=== PATIENT | male | born 1975 | race African-American/Black ===

== ENCOUNTER 2017-08-26 15:52 | Emergency (ER) | payer BC ==
[~2017-08-26] VITALS: Ht 175.3 cm; Wt 175.0 kg
[~2017-08-26 15:52] MED LIST: ALEVE220 M2 OR; ALLOPURINOL300 MG OR; AUGMENTIN875TAB PO; BOOSTRIX IM; CHOLESTEROL MED; CLINDAMYCIN150 MG PO; FLEXERIL OR; FLORASTOR250 M1 PO; FLUARIX QUADRIV1 IN1 IM; HYDROCHLOROT12.5 MG OR; HYDROCHLOROT12.5 MG PO; HYDROCHLOROT25 MG PO; LASIX 40 MG TAB40 MG OR; LISINOPRIL10 MG OR; LISINOPRIL20 MG PO; LOVASTATIN10 M1 PO; MELOXICAM15 MG PO; MICRO-K10 MEQ PO; NAPROSYN500 MG PO; PERCOCET 5/325M1 TAB PO; TET/DIP TOX1 ML IM; ULTRAM50 M1 OR
[2017-08-26 16:35] VITALS: BP 132/76
== END 2017-08-26 16:35 | disposition home or self-care (01) | DRG 301 ==
LOC: ED 15:52
DX: I83.028 Varicose veins of left lower extremity with ulcer other part of lower leg (principal); W22.09XA Striking against other stationary object, initial encounter; Y93.89 Activity, other specified; Y92.513 Shop (commercial) as the place of occurrence of the external cause

== ENCOUNTER 2020-07-04 15:00 | Emergency (ER) | payer OTHER, BC ==
[~2020-07-04] VITALS: Ht 175.3 cm; Wt 165.9 kg
[2020-07-04] MEDS ORDERED: MOBIC7.5 M1 PO (16:33)
[2020-07-04 17:35] VITALS: BP 168/74
== END 2020-07-04 18:03 | disposition home or self-care (01) | DRG 552 ==
LOC: ED 15:00
DX: M54.2 Cervicalgia (principal); M54.6 Pain in thoracic spine; V59.40XA Driver of pick-up truck or van injured in collision with unspecified motor vehicles in traffic accident, initial encounter

== ENCOUNTER 2021-05-29 09:54 | Observation (INO) | payer BC ==
[~2021-05-29] VITALS: Ht 175.3 cm; Wt 168.0 kg
[~2021-05-29 09:54] MED LIST changes: +MOBIC7.5 M1 PO
--- NOTE | 2021-05-29 10:40 | NUR ---
PT AMBULATED TO ROOM, WHEELCHAIR OFFERED AND DECLINED.
--- NOTE | 2021-05-29 11:25 | NUR ---
PT SITTING IN AWAITING US AT THIS TIME. CALL LIGHT WITHIN REACH.
--- NOTE | 2021-05-29 11:40 | NUR ---
PT SITTING IN AWAITING US AT THIS TIME. CALL LIGHT WITHIN REACH.
--- NOTE | 2021-05-29 12:25 | NUR ---
PT SITTING IN AWAITING RESULTS AT THIS TIME. CALL LIGHT WITHIN REACH.
--- NOTE | 2021-05-29 13:25 | NUR ---
PT SITTING IN RM AWAITING RESULTS. CALL LIGHT WITHIN REACH.
[2021-05-29 13:53] LABS: HEMATOCRIT 35.4 % (39.0-50.0); IMMATURE GRANULOCYTES 0.7 % (0.0-5.0); MEAN CELL VOLUME 83.3 fL CALC (80.0-100.0); MEAN CORPUSCULAR HGB 25.9 pG CALC (26.0-32.0); MEAN CORPUSCULAR HGB CONC 31.1 g/dL CAL (32.0-36.0); NEUT# 5.67 thou/uL (1.82-7.42); RED BLOOD COUNT 4.25 mill/uL (4.70-6.10); RED CELL DISTRI WIDTH 14.2 % (11.5-15.5)
[2021-05-29 14:13] LABS: ALBUMIN 4.2 g/dL (3.2-5.0); ALKALINE PHOSPHATASE 92 u/l (38-126); BILIRUBIN, TOTAL 0.3 mg/dL (0.0-1.4); BUN 22 mg/dL (9-20); BUN/CREATININE RATIO 15 (12-20 (CALC)); CREATININE 1.4 mg/dL (0.7-1.3); GFR 55 ML/MIN (>=60 (CALC)); GFR FOR AFR.AMER. > 60 ML/MIN (>=60 (CALC)); POTASSIUM 4.8 mmol/l (3.5-5.1); SGOT/AST 34 u/l (17-59); SODIUM 135 mmol/l (137-146)
[2021-05-29 14:14] LABS: ANION GAP 14 (6-22 (CALC)); CARBON DIOXIDE 35 mmol/l (22-30); CHLORIDE 91 mmol/l (95-108); TOTAL PROTEIN 9.3 g/dL (6.3-8.2)
--- NOTE | 2021-05-29 14:25 | NUR ---
PT SITTING IN RM AWAITING RESULTS. CALL LIGHT WITHIN REACH.
--- NOTE | 2021-05-29 15:24 | NUR ---
PT SITTING IN RM AWAITING RESULTS. CALL LIGHT WITHIN REACH.
--- NOTE | 2021-05-29 16:24 | NUR ---
PT SITTING IN RM AWAITING RESULTS. CALL LIGHT WITHIN REACH.
--- NOTE | 2021-05-29 17:24 | NUR ---
PT SITTING IN RM AWAITING ADMISSION. CALL LIGHT WITHIN REACH.
--- NOTE | 2021-05-29 18:24 | NUR ---
PT SITTING IN RM AWAITING ADMISSION. CALL LIGHT WITHIN REACH.
--- NOTE | 2021-05-29 19:00 | NUR ---
REPORT GIVEN TO GERRI SALAZAR AND CARE RELINQUISHED.
--- NOTE | 2021-05-29 20:57 | NUR ---
Admission Note Report Given to: ROBINSON SALAZAR Transported by: X Wheelchair Stretcher Transported with: X Nurse Transporter X Patent IV O2 Director Of Rehabilitation And Wellness Location: ICU X [facility]
[2021-05-29 21:20] VITALS: BP 102/59
--- NOTE | 2021-05-30 00:36 | NUR ---
PATIENT RESTING IN BED WITH LLE ELEVATED ON PILLOW. DRESSING TO LLE IS CDI AT THIS TIME. PATIENT MEDICATED WITH LORTAB 5/325MG PO FOR 7/10 PAIN TO LLE. IV SITE TO RAC IS HEALTHY AND INTACT. CALL LIGHT IN REACH. WILL CONT TO MONITOR.
--- NOTE | 2021-05-30 04:00 | NUR ---
PATIENT RESTING IN BED WITH LLE ELEVATED ON PILLOWS. IVF PATENT AND INFUSING VIA RAC SITE AT 100CC/HR. EYES CLOSED AND RESP ARE UNLABORED. CALL LIGHT IN REACH. WILL CONT TO MONITOR.
[2021-05-30 04:36] VITALS: BP 110/70
--- NOTE | 2021-05-30 06:09 | NUR ---
RESTING IN BED. VANCO INFUSING ORDERED. MEDICATED FOR LLE PAIN 9/10 ON PAIN SCALE. LLE ELEVATED ON PILLOW. CALL LIGHT IN REACH. WILL CONT TO MONITOR.
[2021-05-30 07:15] VITALS: BP 119/69
--- NOTE | 2021-05-30 07:15 | NUR ---
BEDSIDE REPORT RECEIVED, NO COMPLAINTS/DISTRSS. D CARTEE NOTIFIED PT HOME MEDICATIONS NOT ORDERED.
[2021-05-30] MEDS ORDERED: XARELTO10 MG PO (07:51)
[2021-05-30] MEDS ORDERED: BASAGLAR K100 UNIT/M SC (07:52)
[2021-05-30] MEDS ORDERED: TRAMADOL HYDROC50 M1 PO (07:52)
[2021-05-30] MEDS ORDERED: GABAPENTIN300 M2 PO (07:53)
[2021-05-30] MEDS ORDERED: BACLOFEN10 MG PO (07:53)
[2021-05-30] MEDS ORDERED: INDOMETHACIN50 MG PO (07:54)
[2021-05-30] MEDS ORDERED: GLIPIZIDE5 M2 PO (07:54)
[2021-05-30] MEDS ORDERED: ALLOPURINOL300 MG PO (07:55)
[2021-05-30] MEDS ORDERED: BUMETANIDE2 MG PO (07:55)
[2021-05-30] MEDS ORDERED: LIPITOR10 M1 PO (07:56)
[2021-05-30] MEDS ORDERED: ZESTRIL40 MG PO (07:56)
[2021-05-30] MEDS ORDERED: GABAPENTIN100 MG PO (07:57)
--- NOTE | 2021-05-30 07:57 | NUR ---
PT note Patient is screened for PT intervention and no needs are identified at this time
[2021-05-30 10:22] VITALS: BP 119/69
[2021-05-30 10:45] LABS: HEMATOCRIT 34.1 % (39.0-50.0); HEMOGLOBIN 10.6 g/dl (14.0-18.0); IMMATURE GRANULOCYTES 0.5 % (0.0-5.0); MEAN CELL VOLUME 83.6 fL CALC (80.0-100.0); MEAN CORPUSCULAR HGB CONC 31.1 g/dL CAL (32.0-36.0); NEUT# 5.01 thou/uL (1.82-7.42); RED BLOOD COUNT 4.08 mill/uL (4.70-6.10); RED CELL DISTRI WIDTH 14.2 % (11.5-15.5)
[2021-05-30 10:56] LABS: ANION GAP 13 (6-22 (CALC)); BUN 23 mg/dL (9-20); BUN/CREATININE RATIO 21 (12-20 (CALC)); CARBON DIOXIDE 30 mmol/l (22-30); CHLORIDE 96 mmol/l (95-108); CREATININE 1.1 mg/dL (0.7-1.3); GFR > 60 ML/MIN (>=60 (CALC)); GFR FOR AFR.AMER. > 60 ML/MIN (>=60 (CALC)); POTASSIUM 4.7 mmol/l (3.5-5.1); SODIUM 134 mmol/l (137-146)
--- NOTE | 2021-05-30 11:30 | NUR ---
PT LYING IN BED AWAKE WATCHING TV HAD SOME COMPLAINTS OF PAIN TO LLE POSTERIOR WOUND. DRY DRESSING REAPPLIED AFTER MD VIEWING. D/C PLANNING TO SEND PT WITH HOME HEALTH AND WEEKLY WOUND CARE VISITS PRIOR. CLOT RULED OUT VIA REPORT FROM AND Jacob RIVERO. WILL CONTINUE TO MONITOR.
--- NOTE | 2021-05-30 11:55 | NUR ---
S: CASSIDY FUCHS is a 46 M who presents with cellulitis of left lower leg. He has a history of HTN, CHF, gout, diabetes, hyperlipidemia, morbid obesity. All medications in patient's chart were reviewed. O: VS: BP 119/69 mmHg, P 64 bpm, RR 18 breath/min, T 97.6 F W 168 kg, HT 69 in, Scr= 1.1, CrCl= 130 ml/min A: Blood culture is pending. P: Patient is on ceftriaxone 1g IV Q24H. Vancomycin ordered for pharmacy to dose. Start Vancomycin 1500 mg IV Q12H. Vancomycin trough is drawn before the 4th dose on 05/31/21 at 1530. Vancomycin goal trough is between 10-15 mcg/ml. Pharmacy will follow and or advise on antibiotics use as needed.
[2021-05-30] MEDS ORDERED: AMOX/K CLAV875 M1 PO (14:37)
--- NOTE | 2021-05-30 16:15 | NUR ---
PT ESCORTED VIA WC BY JOSE FRANCISCO TO ER ENTRANCE PT DROVE HIMSELF HOME
== END 2021-05-30 16:15 | disposition home or self-care (01) | DRG 603 ==
LOC: ED 09:54 → ED-I 16:54 → ED 17:30 → MS2 17:31
PROVIDERS: Emergency Medicine; Nurse Practitioner; ADMIT Hospitalist; ATTEND Hospitalist
DX: L03.116 Cellulitis of left lower limb (principal); Z68.43 Body mass index [BMI] 50.0-59.9, adult; I11.0 Hypertensive heart disease with heart failure; I50.9 Heart failure, unspecified; E11.9 Type 2 diabetes mellitus without complications; E78.5 Hyperlipidemia, unspecified; M10.9 Gout, unspecified; E66.01 Morbid (severe) obesity due to excess calories; Z79.4 Long term (current) use of insulin; Z79.01 Long term (current) use of anticoagulants; Z20.822 Contact with and (suspected) exposure to COVID-19
CPT/HCPCS: G0378; J3370

== ENCOUNTER 2022-10-11 20:53 | Emergency (ER) | payer BC ==
[~2022-10-11] VITALS: Ht 175.3 cm; Wt 173.0 kg
[~2022-10-11 20:53] MED LIST changes: +ALLOPURINOL300 MG PO; +AMOX/K CLAV875 M1 PO; +BACLOFEN10 MG PO; +BASAGLAR K100 UNIT/M SC; +BUMETANIDE2 MG PO; +GABAPENTIN100 MG PO; +GABAPENTIN300 M2 PO; +GLIPIZIDE5 M2 PO; +INDOMETHACIN50 MG PO; +LIPITOR10 M1 PO; +TRAMADOL HYDROC50 M1 PO; +XARELTO10 MG PO; +ZESTRIL40 MG PO
[2022-10-11 21:34] LABS: BASO% 0.2 % (0-3); EOS% 0.2 % (0-8); HEMATOCRIT 33.4 % (39.0-50.0); HEMOGLOBIN 11.1 g/dl (14.0-18.0); IMMATURE GRANULOCYTES 0.5 % (0.0-5.0); LYMPH% 10.6 % (15-41); MEAN CELL VOLUME 81.3 fL CALC (80.0-100.0); MEAN CORPUSCULAR HGB CONC 33.2 g/dL CAL (32.0-36.0); MONO% 12.2 % (2-13); NEUT# 7.63 thou/uL (1.82-7.42); NEUT% 76.3 % (42-76); RED BLOOD COUNT 4.11 mill/uL (4.70-6.10); RED CELL DISTRI WIDTH 14.2 % (11.5-15.5)
[2022-10-11] MEDS ORDERED: BENZONATATE200 MG PO (22:17)
[2022-10-11 23:15] VITALS: BP 116/51
== END 2022-10-11 23:35 | disposition home or self-care (01) | DRG 153 ==
LOC: ED 20:53
PROVIDERS: Family Medicine
DX: J06.9 Acute upper respiratory infection, unspecified (principal); I10 Essential (primary) hypertension; E11.9 Type 2 diabetes mellitus without complications; M10.9 Gout, unspecified; Z79.84 Long term (current) use of oral hypoglycemic drugs; Z79.4 Long term (current) use of insulin; Z20.822 Contact with and (suspected) exposure to COVID-19

== ENCOUNTER 2022-10-12 21:20 | Inpatient (IN) | payer BC ==
[~2022-10-12] VITALS: Ht 175.3 cm; Wt 173.7 kg
[~2022-10-12 21:20] MED LIST changes: +BENZONATATE200 MG PO
[2022-10-12 21:59] LABS: BASO% 0.1 % (0-3); EOS% 0.1 % (0-8); HEMATOCRIT 29.5 % (39.0-50.0); IMMATURE GRANULOCYTES 2.6 % (0.0-5.0); LYMPH% 9.1 % (15-41); MEAN CELL VOLUME 79.5 fL CALC (80.0-100.0); MEAN CORPUSCULAR HGB CONC 33.9 g/dL CAL (32.0-36.0); MONO% 11.1 % (2-13); NEUT# 10.79 thou/uL (1.82-7.42); RED BLOOD COUNT 3.71 mill/uL (4.70-6.10); RED CELL DISTRI WIDTH 14.2 % (11.5-15.5)
[2022-10-12 22:21] LABS: ALBUMIN 3.5 g/dL (3.2-5.0)
[2022-10-12 22:22] LABS: BILIRUBIN, TOTAL 0.7 mg/dL (0.0-1.4); CREATININE 2.3 mg/dL (0.7-1.3); POTASSIUM 3.7 mmol/l (3.5-5.1); TOTAL PROTEIN 6.6 g/dL (6.3-8.2)
[2022-10-13] VITALS (10 sets, daily range): BP systolic 102–128; BP diastolic 59–71
[2022-10-13 12:22] LABS: CREATININE 1.6 mg/dL (0.7-1.3); POTASSIUM 3.7 mmol/l (3.5-5.1)
[2022-10-13 13:45] LABS: BASO% 0.1 % (0-3); EOS% 0.4 % (0-8); HEMATOCRIT 31.4 % (39.0-50.0); HEMOGLOBIN 10.4 g/dl (14.0-18.0); IMMATURE GRANULOCYTES 2.2 % (0.0-5.0); LYMPH% 9.9 % (15-41); MEAN CELL VOLUME 80.7 fL CALC (80.0-100.0); MEAN CORPUSCULAR HGB 26.7 pG CALC (26.0-32.0); MEAN CORPUSCULAR HGB CONC 33.1 g/dL CAL (32.0-36.0); MONO% 9.4 % (2-13); NEUT# 11.85 thou/uL (1.82-7.42); RED BLOOD COUNT 3.89 mill/uL (4.70-6.10); RED CELL DISTRI WIDTH 14.4 % (11.5-15.5)
[2022-10-14] VITALS: BP 106/64
[2022-10-14 00:01] VITALS: BP 106/64
[2022-10-14 04:00] VITALS: BP 117/46
[2022-10-14 04:09] VITALS: BP 117/46
[2022-10-14 04:58] LABS: BASO% 0.1 % (0-3); EOS% 0.5 % (0-8); HEMATOCRIT 29.1 % (39.0-50.0); HEMOGLOBIN 9.7 g/dl (14.0-18.0); IMMATURE GRANULOCYTES 2.6 % (0.0-5.0); LYMPH% 12.3 % (15-41); MEAN CELL VOLUME 80.8 fL CALC (80.0-100.0); MEAN CORPUSCULAR HGB 26.9 pG CALC (26.0-32.0); MEAN CORPUSCULAR HGB CONC 33.3 g/dL CAL (32.0-36.0); MONO% 10.9 % (2-13); NEUT# 12.17 thou/uL (1.82-7.42); NEUT% 73.6 % (42-76); RED BLOOD COUNT 3.6 mill/uL (4.70-6.10); RED CELL DISTRI WIDTH 14.5 % (11.5-15.5)
[2022-10-14 05:13] LABS: ALBUMIN 3.3 g/dL (3.2-5.0); ALKALINE PHOSPHATASE 83 u/l (38-126); ANION GAP 11 (6-22 (CALC)); BILIRUBIN, TOTAL 0.7 mg/dL (0.0-1.4); BUN 22 mg/dL (9-20); BUN/CREATININE RATIO 18 (12-20 (CALC)); CARBON DIOXIDE 27 mmol/l (22-30); CHLORIDE 102 mmol/l (95-108); CREATININE 1.2 mg/dL (0.7-1.3); GFR FOR AFR.AMER. > 60 ML/MIN (>=60 (CALC)); GFR OTHER RACES > 60 ML/MIN (>=60 (CALC)); POTASSIUM 3.9 mmol/l (3.5-5.1); SGOT/AST 41 u/l (17-59); SODIUM 135 mmol/l (137-146); TOTAL PROTEIN 6.5 g/dL (6.3-8.2)
[2022-10-14 07:27] VITALS: BP 121/69
[2022-10-14 19:08] VITALS: BP 113/67
[2022-10-15] VITALS (7 sets, daily range): BP systolic 104–126; BP diastolic 64–77
[2022-10-15 06:05] LABS: BASO% 0.2 % (0-3); EOS% 1.7 % (0-8); HEMATOCRIT 29.2 % (39.0-50.0); HEMOGLOBIN 9.8 g/dl (14.0-18.0); IMMATURE GRANULOCYTES 4.9 % (0.0-5.0); LYMPH% 10.7 % (15-41); MEAN CELL VOLUME 81.6 fL CALC (80.0-100.0); MEAN CORPUSCULAR HGB 27.4 pG CALC (26.0-32.0); MEAN CORPUSCULAR HGB CONC 33.6 g/dL CAL (32.0-36.0); MONO% 12.5 % (2-13); NEUT# 12.53 thou/uL (1.82-7.42); RED BLOOD COUNT 3.58 mill/uL (4.70-6.10); RED CELL DISTRI WIDTH 14.5 % (11.5-15.5)
[2022-10-15 06:24] LABS: ALBUMIN 3.1 g/dL (3.2-5.0); ALKALINE PHOSPHATASE 79 u/l (38-126); ANION GAP 10 (6-22 (CALC)); BILIRUBIN, TOTAL 0.5 mg/dL (0.0-1.4); BUN 17 mg/dL (9-20); BUN/CREATININE RATIO 15 (12-20 (CALC)); CARBON DIOXIDE 26 mmol/l (22-30); CHLORIDE 103 mmol/l (95-108); CREATININE 1.1 mg/dL (0.7-1.3); GFR FOR AFR.AMER. > 60 ML/MIN (>=60 (CALC)); GFR OTHER RACES > 60 ML/MIN (>=60 (CALC)); POTASSIUM 4.3 mmol/l (3.5-5.1); SGOT/AST 55 u/l (17-59); SODIUM 135 mmol/l (137-146); TOTAL PROTEIN 6.6 g/dL (6.3-8.2)
[2022-10-16 04:25] VITALS: BP 134/72
[2022-10-16 05:56] LABS: BASO% 0.2 % (0-3); EOS% 2.3 % (0-8); HEMATOCRIT 29.3 % (39.0-50.0); HEMOGLOBIN 9.7 g/dl (14.0-18.0); LYMPH% 8.7 % (15-41); MEAN CELL VOLUME 82.5 fL CALC (80.0-100.0); MEAN CORPUSCULAR HGB 27.3 pG CALC (26.0-32.0); MEAN CORPUSCULAR HGB CONC 33.1 g/dL CAL (32.0-36.0); MONO% 10.8 % (2-13); NEUT# 13.04 thou/uL (1.82-7.42); RED BLOOD COUNT 3.55 mill/uL (4.70-6.10); RED CELL DISTRI WIDTH 14.5 % (11.5-15.5)
[2022-10-16 06:18] VITALS: BP 124/70
[2022-10-16 06:19] VITALS: BP 124/70
[2022-10-16 06:20] LABS: ALBUMIN 3.7 g/dL (3.2-5.0); ALKALINE PHOSPHATASE 100 u/l (38-126); ANION GAP 11 (6-22 (CALC)); BILIRUBIN, TOTAL 0.7 mg/dL (0.0-1.4); BUN 17 mg/dL (9-20); BUN/CREATININE RATIO 15 (12-20 (CALC)); CARBON DIOXIDE 30 mmol/l (22-30); CHLORIDE 99 mmol/l (95-108); CREATININE 1.1 mg/dL (0.7-1.3); GFR FOR AFR.AMER. > 60 ML/MIN (>=60 (CALC)); GFR OTHER RACES > 60 ML/MIN (>=60 (CALC)); POTASSIUM 3.8 mmol/l (3.5-5.1); SGOT/AST 78 u/l (17-59); SODIUM 136 mmol/l (137-146); TOTAL PROTEIN 7.7 g/dL (6.3-8.2)
[2022-10-16 10:25] VITALS: BP 111/62
[2022-10-16 14:30] VITALS: BP 101/70
[2022-10-16 19:16] VITALS: BP 111/65
[2022-10-17 00:12] VITALS: BP 129/76
[2022-10-17 04:04] VITALS: BP 114/71
[2022-10-17 06:10] LABS: ALBUMIN 3.4 g/dL (3.2-5.0); ALKALINE PHOSPHATASE 89 u/l (38-126); BUN 20 mg/dL (9-20); BUN/CREATININE RATIO 21 (12-20 (CALC)); CARBON DIOXIDE 32 mmol/l (22-30); CHLORIDE 99 mmol/l (95-108); CREATININE 0.9 mg/dL (0.7-1.3); GFR FOR AFR.AMER. > 60 ML/MIN (>=60 (CALC)); GFR OTHER RACES > 60 ML/MIN (>=60 (CALC)); SGOT/AST 65 u/l (17-59); SODIUM 135 mmol/l (137-146); TOTAL PROTEIN 7.2 g/dL (6.3-8.2)
[2022-10-17 06:12] LABS: ANION GAP 9 (6-22 (CALC)); BILIRUBIN, TOTAL 0.2 mg/dL (0.0-1.4); POTASSIUM 4.7 mmol/l (3.5-5.1)
[2022-10-17 06:15] LABS: BASO% 0.3 % (0-3); EOS% 0.3 % (0-8); HEMATOCRIT 28.4 % (39.0-50.0); HEMOGLOBIN 9.4 g/dl (14.0-18.0); IMMATURE GRANULOCYTES 3.5 % (0.0-5.0); LYMPH% 5.4 % (15-41); MEAN CELL VOLUME 81.8 fL CALC (80.0-100.0); MEAN CORPUSCULAR HGB 27.1 pG CALC (26.0-32.0); MEAN CORPUSCULAR HGB CONC 33.1 g/dL CAL (32.0-36.0); MONO% 7.1 % (2-13); NEUT# 14.42 thou/uL (1.82-7.42); NEUT% 83.4 % (42-76); RED BLOOD COUNT 3.47 mill/uL (4.70-6.10); RED CELL DISTRI WIDTH 14.4 % (11.5-15.5)
[2022-10-17 06:21] VITALS: BP 93/66
[2022-10-17 08:42] VITALS: BP 93/66
== END 2022-10-17 17:43 | disposition short-term general hospital (02) | DRG 206 ==
LOC: ED 21:20 → ED-I 10-13 01:20 → ED 10-13 01:34 → MS2 10-13 01:35
PROVIDERS: Emergency Medicine; Nurse Practitioner Family; ADMIT Internal Medicine; ATTEND Internal Medicine
PROC: 0S9D3ZZ Drainage of Left Knee Joint, Percutaneous Approach (ICD-10-PCS; principal; 2022-10-16)
DX: J98.8 Other specified respiratory disorders (principal); I13.0 Hypertensive heart and chronic kidney disease with heart failure and stage 1 through stage 4 chronic kidney disease, or unspecified chronic kidney disease; Z68.43 Body mass index [BMI] 50.0-59.9, adult; T84.54XA Infection and inflammatory reaction due to internal left knee prosthesis, initial encounter; M00.9 Pyogenic arthritis, unspecified; R78.81 Bacteremia; J96.01 Acute respiratory failure with hypoxia; I50.9 Heart failure, unspecified; E11.22 Type 2 diabetes mellitus with diabetic chronic kidney disease; N18.30 Chronic kidney disease, stage 3 unspecified; E11.51 Type 2 diabetes mellitus with diabetic peripheral angiopathy without gangrene; M25.562 Pain in left knee; E78.5 Hyperlipidemia, unspecified; E66.01 Morbid (severe) obesity due to excess calories; M10.9 Gout, unspecified; B97.4 Respiratory syncytial virus as the cause of diseases classified elsewhere; B96.89 Other specified bacterial agents as the cause of diseases classified elsewhere; Y83.1 Surgical operation with implant of artificial internal device as the cause of abnormal reaction of the patient, or of later complication, without mention of misadventure at the time of the procedure; Z96.652 Presence of left artificial knee joint; Z79.4 Long term (current) use of insulin; Z79.84 Long term (current) use of oral hypoglycemic drugs
CPT/HCPCS: J0692; J1650; J3370

== ENCOUNTER 2022-10-27 11:46 | Emergency (ER) | payer BC ==
[~2022-10-27] VITALS: Ht 175.3 cm; Wt 172.3 kg
[2022-10-27] MEDS ORDERED: ALLOPURINOL300 MG PO (14:35)
[2022-10-27] MEDS ORDERED: CEFTRIAXONE2 G1 IV (14:36)
[2022-10-27] MEDS ORDERED: COLCHICINE0.6 M2 (14:37)
[2022-10-27] MEDS ORDERED: ELIQUIS2.5 MG PO (14:42)
[2022-10-27] MEDS ORDERED: CVS IRON (14:43)
[2022-10-27] MEDS ORDERED: GLIPIZIDE ER5 MG PO (14:44)
[2022-10-27] MEDS ORDERED: PERCOCET1 TA4 PO (14:45)
[2022-10-27 16:07] VITALS: BP 132/76
== END 2022-10-27 16:20 | disposition home or self-care (01) | DRG 550 ==
LOC: ED 11:46
DX: M00.9 Pyogenic arthritis, unspecified (principal); I10 Essential (primary) hypertension; E11.9 Type 2 diabetes mellitus without complications; M10.9 Gout, unspecified; T45.516A Underdosing of anticoagulants, initial encounter; Z91.120 Patient's intentional underdosing of medication regimen due to financial hardship; Z96.659 Presence of unspecified artificial knee joint

== ENCOUNTER 2022-10-28 12:53 | Emergency (ER) | payer BC ==
[~2022-10-28] VITALS: Ht 175.3 cm; Wt 172.3 kg
[~2022-10-28 12:53] MED LIST changes: +CEFTRIAXONE2 G1 IV; +COLCHICINE0.6 M2; +CVS IRON; +ELIQUIS2.5 MG PO; +GLIPIZIDE ER5 MG PO; +PERCOCET1 TA4 PO
[2022-10-28 15:55] VITALS: BP 117/63
== END 2022-10-28 15:55 | disposition home or self-care (01) | DRG 550 ==
LOC: ED 12:53
DX: M00.9 Pyogenic arthritis, unspecified (principal); I10 Essential (primary) hypertension; E11.9 Type 2 diabetes mellitus without complications; M10.9 Gout, unspecified; T45.516A Underdosing of anticoagulants, initial encounter; Z91.120 Patient's intentional underdosing of medication regimen due to financial hardship; Z96.659 Presence of unspecified artificial knee joint; Z79.84 Long term (current) use of oral hypoglycemic drugs; Z79.4 Long term (current) use of insulin

== ENCOUNTER → 2022-10-29 | Emergency (ER) | payer BC | END | disposition home or self-care (01) | DRG 951 | LOC: ED 12:43 → LWOBS 12:48 | DX: Z53.21 Procedure and treatment not carried out due to patient leaving prior to being seen by health care provider (principal) ==

== ENCOUNTER 2023-01-14 20:10 | Emergency (ER) | payer BC ==
[~2023-01-14] VITALS: Ht 175.3 cm; Wt 158.0 kg
[2023-01-14 20:21] VITALS: BP 157/91
[2023-01-14 20:30] VITALS: BP 132/82
[2023-01-14 20:49] VITALS: BP 124/72
[2023-01-14 21:00] VITALS: BP 140/79
[2023-01-14] MEDS ORDERED: PERCOCET 5/325M1 TAB PO (21:07)
[2023-01-14] MEDS ORDERED: BACTRIM DS1 TAB PO (21:07)
[2023-01-14] MEDS ORDERED: AMOX/K CLAV875 M1 PO (21:07)
[2023-01-14 21:15] VITALS: BP 121/70
[2023-01-14 21:30] VITALS: BP 133/69
== END 2023-01-14 21:48 | disposition home or self-care (01) | DRG 603 ==
LOC: ED 20:10
DX: L02.416 Cutaneous abscess of left lower limb (principal); I10 Essential (primary) hypertension; E11.9 Type 2 diabetes mellitus without complications; M10.9 Gout, unspecified; Z96.652 Presence of left artificial knee joint; Z79.84 Long term (current) use of oral hypoglycemic drugs; Z79.4 Long term (current) use of insulin

== ENCOUNTER 2023-02-09 21:10 | Emergency (ER) | payer BC ==
[~2023-02-09] VITALS: Ht 176.5 cm; Wt 159.0 kg
[~2023-02-09 21:10] MED LIST changes: +BACTRIM DS1 TAB PO
[2023-02-09 21:24] VITALS: BP 130/74
[2023-02-09] MEDS ORDERED: BACTRIM DS1 TAB PO (21:30)
[2023-02-09 21:31] VITALS: BP 123/69
[2023-02-09 22:00] VITALS: BP 123/69
== END 2023-02-09 22:00 | disposition home or self-care (01) | DRG 603 ==
LOC: ED 21:10
DX: L03.116 Cellulitis of left lower limb (principal); I10 Essential (primary) hypertension; E11.9 Type 2 diabetes mellitus without complications; M10.9 Gout, unspecified; B95.7 Other staphylococcus as the cause of diseases classified elsewhere; Z79.84 Long term (current) use of oral hypoglycemic drugs; Z79.4 Long term (current) use of insulin; Z96.652 Presence of left artificial knee joint

== ENCOUNTER 2023-02-11 04:38 | Emergency (ER) | payer BC ==
[~2023-02-11] VITALS: Ht 176.5 cm; Wt 159.0 kg
[2023-02-11 06:11] LABS: BASO% 0.2 % (0-3); EOS% 3.2 % (0-8); HEMATOCRIT 26.9 % (39.0-50.0); HEMOGLOBIN 8.1 g/dl (14.0-18.0); IMMATURE GRANULOCYTES 0.2 % (0.0-5.0); LYMPH% 18.2 % (15-41); MEAN CORPUSCULAR HGB 22.1 pG CALC (26.0-32.0); MEAN CORPUSCULAR HGB CONC 30.1 g/dL CAL (32.0-36.0); MONO% 8.4 % (2-13); NEUT# 6.98 thou/uL (1.82-7.42); NEUT% 69.8 % (42-76); RED BLOOD COUNT 3.67 mill/uL (4.70-6.10); RED CELL DISTRI WIDTH 17.4 % (11.5-15.5)
[2023-02-11 06:15] LABS: MEAN CELL VOLUME 73.3 fL CALC (80.0-100.0)
[2023-02-11 06:23] LABS: ALBUMIN 3.6 g/dL (3.2-5.0); ALKALINE PHOSPHATASE 90 u/l (38-126); BUN 14 mg/dL (9-20); BUN/CREATININE RATIO 14 (12-20 (CALC)); CARBON DIOXIDE 35 mmol/l (22-30); CHLORIDE 100 mmol/l (95-108); GFR FOR AFR.AMER. > 60 ML/MIN (>=60 (CALC)); GFR OTHER RACES > 60 ML/MIN (>=60 (CALC)); SGOT/AST 27 u/l (17-59); SODIUM 140 mmol/l (137-146); TOTAL PROTEIN 7.6 g/dL (6.3-8.2)
[2023-02-11 06:25] LABS: ANION GAP 9 (6-22 (CALC)); POTASSIUM 3.6 mmol/l (3.5-5.1)
[2023-02-11 09:04] VITALS: BP 120/64
== END 2023-02-11 09:29 | disposition home or self-care (01) | DRG 863 ==
LOC: ED 04:38
PROVIDERS: Family Medicine
PROC: 0H9LXZZ Drainage of Left Lower Leg Skin, External Approach (ICD-10-PCS; principal; 2023-02-11)
DX: T81.41XA Infection following a procedure, superficial incisional surgical site, initial encounter (principal); I10 Essential (primary) hypertension; E11.9 Type 2 diabetes mellitus without complications; M10.9 Gout, unspecified; Y83.1 Surgical operation with implant of artificial internal device as the cause of abnormal reaction of the patient, or of later complication, without mention of misadventure at the time of the procedure; Z96.652 Presence of left artificial knee joint